=== PATIENT | male | born 1940 | race Caucasian/White ===

== ENCOUNTER → 2016-08-03 18:44 | Outpatient (CLI) | payer MEDICARE ==
[2016-08-03 20:19] LABS: BASOPHILS 0.2 % (0-2); EOSINOPHILS 0.8 % (0-7); HEMATOCRIT 33.7 % (42.0-54.0); HEMOGLOBIN 10.9 g/dL (13.5-17.5); IMMATURE GRANULOCYTES 0.2 % (0-5); LYMPHOCYTES 23.3 % (15-50); MCH 27.3 pg (26.0-34.0); MCHC 32.3 g/dL (31.0-37.0); MCV 84.3 fL (80.0-100.0); MEAN PLATELET VOLUME 10.1 fL (7.4-10.4); MONOCYTES 13.7 % (2-11); NEUTROPHILS 61.8 % (40-80); PLATELET COUNT 222 10x3/uL (130-400); RDW 17.7 % (11.5-14.5); WBC 8.5 10x3/uL (4.8-10.8)
[2016-08-03 20:51] LABS: ANION GAP 11.4 mmol/L (8-16); C-REACTIVE PROTEIN 2.5 mg/dL (0.0-0.9); CALCIUM 9.8 mg/dL (8.5-10.1); CREATININE - SERUM 2.5 mg/dL (0.6-1.3); POTASSIUM - SERUM 4.4 mmol/L (3.5-5.1)
[2016-08-03 21:06] LABS: ERYTHROCYTE SEDIMENTATION RATE 14 mm/hr (0-20)
== END | disposition home or self-care (01) ==
LOC: D.LABREF 18:44
PROVIDERS: Student in an Organized Health Care Education/Training Program
DX: E11.621 Type 2 diabetes mellitus with foot ulcer (principal)

== ENCOUNTER 2016-08-23 04:48 | Inpatient (IN) | payer MEDICARE ==
[2016-08-23] VITALS (60 sets, daily range): BP systolic 74–134; BP diastolic 31–92; Ht 172.7 cm; Wt 72.7 kg
[~2016-08-23] VITALS: Ht 172.7 cm; Wt 72.7 kg
--- NOTE | ~2016-08-23 | DS ---
PATIENT:JOSEP ALICEA :36 MEDICAL RECORD: [id number] DISCHARGE SUMMARY ADMISSION DATE: 08/23/16 DISCHARGE DATE: 08/27/16 Summary DATE OF ADMISSION: 08/23/2016 DATE OF : 08/27/2016 PROBLEM LIST: Cardiogenic shock. SECONDARY DIAGNOSES: 1. Acute myocardial infarction. 2. 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 BRIEF HISTORY AND HOSPITAL COURSE: Elderly gentleman transferred from [place] with cardiogenic shock, underwent urgent revascularization, placement of balloon pump temporary pacer. Despite maximal efforts, he passed on 08/27/2016. CAUSE OF : Cardiogenic shock. TRANSINT:[id number] Voice Confirmation ID: [id number] DOCUMENT ID: [id number] MATT KNOWLES MD CC: [id number] DICTATION DATE: 09/02/16 1247 INJECTION SPECIALIST: 09/03/16 0657 DIS IN 08/27/16 [place] [id number] [place] [address]
--- NOTE | ~2016-08-23 | HEMODYNAMI ---
PATIENT:JOSEP ALICEA MEDICAL RECORD: [id number] : 36 LOCATION:[place] [address] ADMISSION DATE: 08/23/16 Generatedon:08/23/20169:04 Patient name: JOSEP ALICEA Patient #: [id number] SSN: : Date of study: 08/23/2016 Page: Of Hemodynamic Procedure Report Patient Data Patient Demographics First Name: JOSEP Gender: Male Last Name: NIXON : 1940 Patient #: [id number] Age: 75 year(s) Race: Unknown Additional ID: [id number] Contact details Address: [address] [place] [address] State: [place] City: [facility] Zip code: [address] Past Medical History Allergies Allergen Reaction Date Comments Reported Penicillins 08/23/2016 Admission Admission Data Admission Date: 08/23/2016 Admission Time: 6:56 Room #: [facility] Height (in.): 74 BSA: 1.82 (m2) Height (cm.): 187.96 BMI: 16.98 (kg/m2) Weight (lbs.): 132.28 Weight (kg.): 60 Procedure Procedure Types Cath Procedure Diagnostic Procedure LHC LH w/Coronaries Intra-Aortic Balloon Pump PCI Procedure Coronary Stent Initial Miscellaneous Procedures Moderate Sedation up to 45 minutes Procedure Description Procedure Date Procedure Date: 08/23/2016 Procedure Start Time: 8:13 Procedure End Time: 9:03 Procedure Staff Name Function Stephanie Bolanos RT Monitor Gail Faust RN Nurse Rosalio Camara MD Performing Physician Sonia Prajapati RT Scrub Moira Munoz RT Monitor Procedure Data Cath Procedure Fluoroscopy Diagnostic fluoroscopy Total fluoroscopy Time: 7.6 time: 7.6 min min Diagnostic fluoroscopy Total fluoroscopy dose: 757 dose: 757 mGy mGy Contrast Material Contrast Material Type Amount (ml) Isovue 300 86 Entry Location Entry Primary Successful Side Size Upsize Upsize Entry Closure Succes sful Closure Location (Fr) 1 (Fr) 2 (Fr) Remarks Device Remarks Femoral Right 6 Fr 7 Fr Sheath Sutered artery Short Short sutured in with in IABP in place place. Femoral Right 6 Fr Sheath Sutured vein Short sutured in with in Temporary place Pacer in place. Estimated blood loss: 10 ml Diagnostic catheters Device Type Used For End Catheter Placement Cordis 5Fr JL 4.0 Left Coronary Catheter (MP) Angiography Cordis 5Fr 3DRC Catheter Right Coronary (MP) Angiography Cordis 5Fr Pigtail LV Angiography Catheter (MP) Procedure Complications Cardiogenic Shock Procedure Medications Medication Administration Route Dosage Oxygen Lidocaine 2% added to field 20 Heparin Flush Bag added to field 2 bags (1000units/500ml NS) 0.9% NaCl I.V. Dopamine I.V. drip 25 mcg/kg/min (400mg/250ml D5W) Levophed (8mg/250ml I.V. drip 12 mcg/min D5W) Vasopressin I.V. drip 0.4 units/min (100units/250 NS) Calcium Chloride I.V. 1 g Heparin Bolus I.V. 5000 units Integrilin (Bolus I.V. 5.6 ml 2mg/ml) Ancef (1Gm/50ml NS) I.V.P.B 1 g Heparin Drip I.V. drip 800 units/hr (02156mdmwo/250 D5W) Integrilin Drip I.V. drip 5 ml/hr (75mg/100ml) Hemodynamics Rest BSA: 1.82 (m2) O2 Consumption: Estimated: 197.96 (ml/min) O2 Consumption indexed : Estimated:108.77 (ml/min/m) Heart Rate: 54 (bpm) Pressure Samples Time Site Value (mmHg) Purpose Heart Use Rate(bpm) 8:18 LV 69/20,28 EDP 55 Snapshots Pre Cath Intra NCS Post Cath Vital Signs Time Heart Resp SPO2 etCO2 [id number] NIBP (mmHg) Rhythm Pain Sedation Rate (ipm) (%) (mmHg) (mmHg) Status Level (bpm) 7:59:15 54 39 87 0 0 Measuring SB 0 (11) 10(A) , No pain 8:00:39 54 40 91 0 0 Time SB 0 (11) 10(A) Exceeded , No pain 8:05:22 60 45 86 0 0 125/90(105) SB 0 (11) 10(A) , No pain 8:09:40 53 34 85 0 0 64/29(55) SB 0 (11) 10(A) , No pain 8:13:34 53 36 93 0 0 68/49(59) SB 0 (11) 10(A) , No pain 8:17:29 56 34 87 0 0 65/50(56) SB 0 (11) 10(A) , No pain 8:21:19 51 32 95 0 0 81/56(72) SB 0 (11) 10(A) , No pain 8:25:18 70 35 100 0 0 71/46(61) SB 0 (11) 10(A) , No pain 8:29:18 53 43 93 0 0 63/33(52) SB 0 (11) 10(A) , No pain 8:33:09 75 43 96 0 0 75/57(68) SB 0 (11) 10(A) , No pain 8:37:09 74 43 100 0 0 79/46(57) SB 0 (11) 10(A) , No pain 8:41:08 88 49 94 0 0 74/45(61) NSR 0 (11) 10(A) , No pain 8:45:08 67 41 97 0 0 80/38(70) NSR 0 (11) 10(A) , No pain 8:50:01 71 43 92 0 0 110/58(87) NSR 0 (11) 10(A) , No pain 8:53:55 75 41 95 0 0 111/77(84) NSR 0 (11) 10(A) , No pain 8:58:04 80 38 99 0 0 106/54(82) NSR 0 (11) 10(A) , No pain 9:02:59 83 36 100 0 0 107/51(91) NSR 0 (11) 10(A) , No pain Medications Time Medication Route Dose Verified Delivered Reason N otes Effectiveness by by 7:59:11 Oxygen bipap bipap per Rosalio Reynolds for low [address] Lisandro Faust RN, MD 8:00:11 Levophed I.V. 12 mcg/min Rosalio Reynolds Per physician f rom icu (8mg/250ml D5W) drip [facility] Lisandro Faust RN, MD 8:00:38 Dopamine I.V. 25 Rosalio Reynolds Per physician f rom icu (400mg/250ml drip mcg/kg/min [facility] Lisandro Faust RN D5W) 8:00:41 Vasopressin I.V. 0.4 Rosalio Reynolds Per physician f rom icu (100units/250 drip units/min [facility] Lisandro Faust RN NS) 8:08:35 Lidocaine 2% added 20ml vial Rosalio Santamaria for local to [facility] anesthetic field MD [place] 8:08:41 Heparin Flush added 2 bags Rosalio Santamaria for local Bag to [facility] anesthetic (1000units/500ml field MD [place] NS) 8:09:11 0.9% NaCl I.V. as ordered Rosalio Reynolds Per physician [facility]. Lisandro Faust RN, MD 8:16:13 Calcium Chloride I.V. 1 g Rosalio Reynolds Per physician [facility]. Lisandro Faust RN, MD 8:24:39 Heparin Bolus I.V. 5000 units Rosalio Reynolds for v erified [facility]. Lisandro Faust RN anticoagulation with MD geovani gore rn 8:26:15 Integrilin I.V. 5.6 ml Rosalio Reynolds for (Bolus 2mg/ml) [facility] Lisandro Faust RN antiplatelet MD therapy 8:50:54 Ancef (1Gm/50ml I.V.P.B 1 g Rosalio Reynolds Per physician peter granados NS) St. Lisandro diaz MD is aware of pcn allergy. 8:57:21 Heparin Drip I.V. 800 Rosalio Buffie for v erified (70745jwhqz/250 drip units/hr [facility]. Lisandro Faust RN anticoagulation with D5W) MD geovani gore rn 8:57:41 Integrilin Drip I.V. 5 ml/hr Rosalio Reynolds for v erified (75mg/100ml) drip [facility]. Lisandro Faust RN antiplatelet with MD therapy geovani gore rn, renal dose Procedure Log Time Note 7:43:10 Gail Faust RN sent for patient. Start room use. 7:43:11 Time tracking: Regular hours 7:43:20 Plan of Care:Hemodynamics will remain stable., Cardiac rhythm will remain stable., Patient/ family verbilizes understanding of procedure., Procedure tolerated without complication., Recovers from procedure without complications.. 7:44:05 Patient received from CVICU to CCL 1 Alert and oriented. Tansferred to table in Supine position. 7:56:58 Warm blankets applied, and margaret hugger turned on for patient comfort. 7:57:02 Correct patient and procedure confirmed by team. 7:57:26 ECG and BP/O2 sat monitors applied to patient. 7:57:27 Vital chart was started 7:57:28 Baseline sample Acquired. 7:58:35 left bundle branch block 7:58:51 Full Disclosure recording started 7:59:01 Pre-procedure instructions explained to patient. 7:59:11 Oxygen bipap per rt bipap was administered by Gail Faust RN; for low 02 sats; 7:59:57 IV patent on arrival in left forearm with 0.9% NaCl at O. 8:00:11 Levophed (8mg/250ml D5W) 12 mcg/min I.V. drip was administered by Gail Faust RN; Per physician; from icu 8:00:37 Right groin area was prepped with chlora-prep and draped in sterile fashion 8:00:38 Dopamine (400mg/250ml D5W) 25 mcg/kg/min I.V. drip was administered by Gail Faust RN; Per physician; from icu 8:00:39 Sharps counted by scrub and verified by R.N. 8:00:39 Alarms reviewed by R. N. 8:00:41 Vasopressin (100units/250 NS) 0.4 units/min I.V. drip was administered by Gail Faust RN; Per physician; from icu 8:02:55 Baseline sample Acquired. 8:03:09 H&P Date Dictated: 08/23/2016 Emergent; H&P N/A. 8:03:51 Patient in Cardiogenic shock. 8:04:05 Pre-op teaching completed and patient verbalized understanding. 8:04:07 Family in waiting room. 8:04:09 Patient NPO since Midnight. 8:04:17 Patient allergic to Penicillins 8:04:24 Is the patient allergic to Iodine/contrast media? No. 8:05:05 Is patient on blood thinner?Unknown 8:05:48 Unable to do pre anesthesia assessment. 8:05:52 Patient diabetic? Unknown. 8:06:05 Pre procedure: right dorsailis pedis pulse 1+ Palpable, but thready & weak; easily obliterated 8:06:07 Patient pain scale 0/10 ?. 8:06:14 Zero performed for pressure channel P1 8:06:41 Zero performed for pressure channel P1 8:06:43 Zero performed for pressure channel P1 8:06:49 Zero performed for pressure channel P1 8:06:52 Zero performed for pressure channel P1 8:08:15 Lab results completed and on chart. 8:08:35 Lidocaine 2% 20ml vial added to field was administered by Rosalio Camara MD; for local anesthetic; 8:08:41 Heparin Flush Bag (1000units/500ml NS) 2 bags added to field was administered by Rosalio Camara MD; for local anesthetic; 8:09:11 0.9% NaCl as ordered I.V. was administered by Gail Faust RN; Per physician; 8:10:14 Physician paged 8:11:25 Patient Height : 74 cm 8:11:30 Patient Weight : 132.28 kg 8:12:13 Final Timeout: patient, procedure, and site verified with staff and physician. All members of the team are in agreement. 8:12:14 Right groin site verified by team. 8:12:23 Physical assessment completed. ASA score P 4 - A patient with severe systemic disease that is a constant threat to life as per Rosalio Camara MD. 8:12:25 Sedation plan: IV Moderate Sedation Versed, Fentanyl 8:12:38 Use device set Femoral Dx 8:12:39 Bag Decanter opened to sterile field. 8:12:39 Acist Syringe opened to sterile field. 8:12:40 St Guy 260cm J .035 wire opened to sterile field. 8:12:40 Medline Cath Pack opened to sterile field. 8:12:41 Acist Hand Control opened to sterile field. 8:12:42 Diagnostic Infinity 5Fr Multipack catheter opened to sterile field. 8:12:42 Acist Manifold opened to sterile field. 8:12:43 Tegaderm 4 x 4 opened to sterile field. 8:12:49 Terumo 6Fr [place] Sheath opened to sterile field. 8:13:49 Procedure started. 8:13:52 Local anesthetic to right femoral artery with Lidocaine 2% by Rosalio Camara MD.INITIAL ACCESS ONLY 8:14:09 A 6 Fr Short sheath was inserted into the Right Femoral artery 8:15:04 A Cordis 5Fr JL 4.0 Catheter (MP) was advanced over the wire and used for Left Coronary Angiography. 8:16:13 Calcium Chloride 1 g I.V. was administered by Gail Faust RN; Per physician; 8:16:38 Catheter removed. 8:16:46 A Cordis 5Fr 3DRC Catheter (MP) was advanced over the wire and used for Right Coronary Angiography. 8:17:17 Terumo 6Fr [place] Sheath opened to sterile field. 8:17:52 Catheter removed. 8:17:58 A Cordis 5Fr Pigtail Catheter (MP) was advanced over the wire and used for LV Angiography. 8:19:28 LV gram done using COLE 8:19:33 Injector settings: Ml/sec: 10, Volume: 20, 8:19:35 Catheter removed. 8:21:07 Local anesthetic to right femoral vein with Lidocaine 2% by Rosalio Camara MD.ADDITIONAL ACCESS 8:21:19 A 6 Fr Short sheath was inserted into the Right Femoral vein 8:21:24 Temporary pacer inserted 8:21:54 Cordis 6FR XBLAD 3.5 guide catheter opened to sterile field. 8:21:55 5Fr J Tip Temporary Pacing Catheter opened to sterile field. 8:22:05 Temporary pacer turned on with the following settings: Rate 80, MA 10, Mode: Demand. 8:22:43 Temporary pacer turned on with the following settings: Rate 70, MA 2, Mode: Demand. 8:23:40 6 Fr XBLAD 3.5 guide catheter was inserted over the wire 8:24:39 Heparin Bolus 5000 units I.V. was administered by Gail Faust RN; for anticoagulation; verified with geovani gore rn 8:24:55 Whisper wire advanced. 8:26:15 Integrilin (Bolus 2mg/ml) 5.6 ml I.V. was administered by Gail Faust RN; for antiplatelet therapy; 8:28:29 Inflation Number: 1 A Medtronic Integrity 3.5 X 15 stent was prepped and advanced across the Prox LAD. The stent was deployed at 14 VELIA for 0:23 (min:sec). 8:29:57 Temporary pacer turn off 8:30:15 Temporary Repositioned. 8:32:18 Temporary pacer turned on with the following settings: Rate 70, MA 2.5, Mode: Demand. 8:32:31 Terumo 7Fr Longmont Sheath opened to sterile field. 8:32:41 Datascope IABP 40cm balloon catheter opened to sterile field. 8:32:52 Stent catheter was removed intact over wire. 8:32:53 Guide catheter removed. 8:32:53 Wire removed. 8:33:35 Sheath upsized to a 7 Fr Short. 8:34:37 TUBING, CONTRAST INJCTN HI PRES opened to sterile field. 8:35:08 SUTURE SILK 2-0 BLK BR FS 18 I opened to sterile field. 8:35:13 SUTURE SILK 2-0 BLK BR FS 18 I opened to sterile field. 8:42:22 40cc IABP inserted into the RFA . 8:42:26 Augmentation: 1:1 per physician. 8:42:27 Trigger: Pressure 8:49:26 Augmenter BP: 102 8:49:38 Procedure ended.(Physican Out) 8:49:49 Fluoroscopy time 07.60 minutes. 8:49:53 Fluoroscopy dose: 757 mGy 8:49:53 Flurop Dose total: 757 8:50:28 Contrast amount:Isovue 300 86ml. 8:50:30 Sharps counted by scrub and verified by R.N. 8:50:32 Insertion/operative site no bleeding no hematoma. 8:50:54 Ancef (1Gm/50ml NS) 1 g I.V.P.B was administered by Gail Faust RN; Per physician; dr diaz is aware of pcn allergy. 8:50:57 Sheath removed intact; hemostasis achieved with Sheath sutured in place to the Right Femoral artery. 8:51:19 Sheath removed intact; hemostasis achieved with Sheath sutured in place to the Right Femoral vein. 8:51:37 Post-op/insertion site Right Femoral artery dressed using a 4 x 4 and Tegaderm. 8:51:40 Post right femoral artery:stable, clean and dry 8:51:46 Post right femoral vein:stable, clean and dry 8:51:51 Post Procedure Pulses reassessed and unchanged 8:52:03 Post-procedure physical assessment completed. ASA score P 4 - A patient with severe systemic disease that is a constant threat to life as per Rosalio Camara MD. 8:52:07 Post procedure rhythm: unchanged. 8:52:09 Estimated blood loss: 10 ml 8:52:11 Patient needs reinforcement of post procedure teaching. 8:52:11 Post procedure instruction explained to patient.Patient verbalizes understanding. 8:52:38 Procedure type changed to Cath procedure, Diagnostic procedure, LHC, LHC w/Coronaries, Intra-Aortic Balloon Pump, PCI procedure, Coronary Stent Initial, Miscellaneous Procedures, Moderate Sedation up to 45 minutes 8:52:42 Procedure Complication : Cardiogenic Shock 8:52:44 See physician's report for complete and final results. 8:55:16 Arterial Line opened to sterile field. 8:56:09 Singh Whisper J 300cm 0.014 guide wire opened to sterile field. 8:57:17 Tegaderm 4 x 4 opened to sterile field. 8:57:18 Tegaderm 4 x 4 opened to sterile field. 8:57:21 Heparin Drip (98446kaqcv/250 D5W) 800 units/hr I.V. drip was administered by Gail Faust RN; for anticoagulation; verified with geovani gore rn 8:57:41 Integrilin Drip (75mg/100ml) 5 ml/hr I.V. drip was administered by Gail Faust RN; for antiplatelet therapy; verified with geovani gore rn, renal dose 8:58:06 Procedure and supply charges have been captured, reviewed, submitted and are correct. 9:02:55 Vital chart was stopped 9:02:58 Report given to CVICU. 9:03:01 Patient transfered to CVICU with Bed. 9:03:03 Procedure ended. 9:03:03 Full Disclosure recording stopped 9:03:12 End room use (Document Last) Intervention Summary Intervention Notes Time ActionType Lesion and Equipment Action# Pressure Duration Attributes Used 8:28:[address] Place stent Prox LAD Medtronic 1 14 00:23 Integrity 3.5 X 15 stent Device Usage Item Name Manufacture Quantity Catalog Number Hospital Part Current Mini mal Lot# / Charge Number Stock Stock Serial# Code Acist Acist 1 85929 093441 301626 935766 20 Syringe Medical Systems Inc Bag Microtek 1 2002S 899730 60039 347889 5 Logicbroker. Medline Cardinal 1 [id number] 522489 83940 963277 5 [employer] [facility] Guy 1 970983 479018 783647 096807 30 260cm J .035 wire Acist Hand Acist 1 02977 783265 912541 831229 5 Control Medical Systems Inc Acist Acist 1 42014 657051 001347 260544 5 [facility] Medical Systems Inc Diagnostic Cardinal 1 [id number] 436379 48697 901774 30 Infinity Health 5Fr Multipack catheter Tegaderm 4 3M 3 1626W 923340 999127 830485 5 x 4 Terumo 6Fr Terumo 2 [id number] 318114 049024 051202 40 [place] Sheath Cordis 5Fr Cardinal 1 244782 5 JL 4.0 Health Catheter (MP) Cordis 5Fr Cardinal 1 355811 5 3DRC Health Catheter (MP) Cordis 5Fr Cardinal 1 792909 5 Pigtail Health Catheter (MP) Cordis 6FR Cardinal 1 [id number] 931655 094501 253178 10 XBLAD 3.5 Health guide catheter 5Fr J Tip Jensen 1 [id number] 107789 61211 411096 2 Temporary Lifesciences Pacing Catheter Medtronic Medtronic 1 [id number] 624327 081459 3 [id number] Integrity 3.5 X 15 stent Terumo 7Fr Terumo 1 [id number] 589750 244436 028610 5 [place] Sheath Datascope Datascope 1 3749-16-3782-01 723391 070672 581995 1 IABP 40cm balloon catheter TUBING, Merit 1 [id number] 725642 653573 322848 5 CONTRAST Medical INJCTN HI PRES SUTURE Ethicon 2 685H 654116 971159 5 SILK 2-0 BLK BR FS 18 I Arterial Jensen 1 [id number] 712899 10821 110495 5 Line Lifesciences Singh Singh 1 [id number] 086199 892022 024290 5 Whisper J Vascular 300cm 0.014 guide wire Signature Audit [place] Stage Time Signature Unsigned Intra-Procedure 08/23/2016 Moira 9:04:20 AM Counts RT(R) Signatures Monitor : Stephanie Bolanos RT Signature : Date : Time : Monitor : Moira Signature : Counts RT Date : Time : [address] [place] [address]
[2016-08-23 07:27] LABS: BASOPHILS 0.1 % (0-2); EOSINOPHILS 0 % (0-7); HEMATOCRIT 35.4 % (42.0-54.0); HEMOGLOBIN 11.2 g/dL (13.5-17.5); IMMATURE GRANULOCYTES 0.7 % (0-5); LYMPHOCYTES 10.1 % (15-50); MCH 27.6 pg (26.0-34.0); MCHC 31.6 g/dL (31.0-37.0); MCV 87.2 fL (80.0-100.0); MEAN PLATELET VOLUME 11.1 fL (7.4-10.4); MONOCYTES 13.3 % (2-11); NEUTROPHILS 75.8 % (40-80); PLATELET COUNT 213 10x3/uL (130-400); RBC 4.06 10x6/uL (4.20-6.10); RDW 19.7 % (11.5-14.5); WBC 18.8 10x3/uL (4.8-10.8)
[2016-08-23 07:34] LABS: ANION GAP 25.7 mmol/L (8-16); CARBON DIOXIDE 15.5 mmol/L (21.0-32.0); CREATININE - SERUM 2.2 mg/dL (0.6-1.3); POTASSIUM - SERUM 4.2 mmol/L (3.5-5.1)
--- NOTE | 2016-08-23 07:40 | NUR ---
OJEDA CATHETER PLACED PER ORDER.
--- NOTE | 2016-08-23 07:50 | NUR ---
PT TO SUPERINTENDENT NONSELLING VIA BED.
--- NOTE | 2016-08-23 09:08 | NUR ---
REPORT RECEIVED FROM GOLDEN VALENTINO RN.
--- NOTE | 2016-08-23 09:15 | NUR ---
PT RETURNED FROM [facility].
--- NOTE | 2016-08-23 09:20 | NUR ---
PT RECEIVED FROM WAREHOUSE ORDER FILLER WITH IAPB AND TPM IN PLACE. IAPB FREQUENCY 1:1, TPM VV1 70.
--- NOTE | 2016-08-23 09:41 | NUR ---
DR PARRY NOTIFIED OF CONSULT, PT PREPPED FOR INTUBATION.
--- NOTE | 2016-08-23 09:43 | NUR ---
FAMILY AT BEDSIDE, UPDATE PROVIDED. BOTH PT AND FAMILY CONSENT TO INTUBATION.
--- NOTE | 2016-08-23 10:00 | NUR ---
DECISION MADE TO HOLD OFF ON INTUBATION AT THIS TIME. PT WILL REMAIN ON BIPAP, PLAN DISCUSSED WITH FAMILY BY DR PARRY AND RT.
--- NOTE | 2016-08-23 10:19 | NUR ---
REPEAT CXR COMPLETE.
--- NOTE | 2016-08-23 11:30 | NUR ---
REASSESSMENT VIA FLOWSHEET, SEE FOR DETAILS.
--- NOTE | 2016-08-23 12:25 | NUR ---
FAMILY AT BEDSIDE, UPDATE PROVIDED.
--- NOTE | 2016-08-23 13:20 | NUR ---
DR PUCKETT HERE TO SEE PATIENT. FAMILY UPDATED BY DR UPCKETT REGARDING PT CONDITION.
--- NOTE | 2016-08-23 15:01 | NUR ---
LAB HERE FOR PTT DRAW.
--- NOTE | 2016-08-23 15:03 | NUR ---
FAMILY AT BEDSIDE, PT CONVERSING WITH VISITORS. VSS. IAPB REMAINS 1:1.
--- NOTE | 2016-08-23 15:30 | NUR ---
REASSESSMENT VIA FLOWSHEET, SEE FOR DETAILS.
--- NOTE | 2016-08-23 15:35 | NUR ---
PTT RESULTS REVIEWED, HEPARIN GTT ADJUSTED PER PROTOCOL.
[2016-08-23] MEDS ORDERED: LANOXIN250 MCG PO (17:38)
[2016-08-23] MEDS ORDERED: LASIX80 MG PO (17:39)
[2016-08-23] MEDS ORDERED: GLUCOPHAGE500 MG PO (17:39)
[2016-08-23] MEDS ORDERED: COUMADIN7.5 MG PO (17:45)
[2016-08-23] MEDS ORDERED: COUMADIN5 MG PO (17:45)
[2016-08-23] MEDS ORDERED: ZESTRIL20 MG PO (17:46)
[2016-08-23] MEDS ORDERED: K-DUR20 MEQ PO (17:47)
[2016-08-23] MEDS ORDERED: ASPIRIN325 MG PO (17:48)
[2016-08-23] MEDS ORDERED: HYDROCODON-ACE1 EAC7 PO (17:49)
[2016-08-23] MEDS ORDERED: VITAMIN B-121000 MCG PO (17:49)
[2016-08-23] MEDS ORDERED: FE C TABLET1 TAB PO (17:50)
[2016-08-23] MEDS ORDERED: MULTIPLE VITAMI1 TA1 PO (17:50)
[2016-08-23] MEDS ORDERED: LEVAQUIN250 MG (17:51)
--- NOTE | 2016-08-23 18:07 | NUR ---
FAMILY AT BEDSIDE, UPDATE PROVIDED. PT AWAKE AND CONVERSING WITH VISITORS.
--- NOTE | 2016-08-23 19:30 | NUR ---
REPORT REC'D AND CARE ASSUMED, REC'D PT AWAKE, ALERT, ORIENTED X 3 ON 100% NRB, CM-CAF, RIGHT HAND PIV WITH D5W WITH 3AMPS BICARB @ 30CC/HR, RIGHT FA PIV WITH DOPAMINE @ 15MCG/KG/MIN OR 33.8CC/HR, RIGHT A/C PIV WITH HEPARIN @ 600UNITS/HR AND INTEGRILIN @ 4.8CC/HR OR 1MCG/KG/MIN, LEFT A/C PIV WITH LEVOPHED @ 22.5CC/HR OR 12MCG/KG/MIN AND VASOPRESSIN @ 6CC/HR OR 0.04 UNITS/MIN, IABP 1:1 TO RIGHT GROIN, TRANSVENOUS P/M TO RIGHT GROIN VVI 70 VMA 2.5, P/M SENSING, GROIN DRSG CDI WITH NO BLEEDING OR HEMATOMA, CRITICORE OJEDA PATENT DRAINING A SMALL AMOUNT CONCENTRATED URINE, PP BY DOPPLER, PT DENIES PAIN OR NEEDS AT THIS TIME, SR UP X 2, 1:[address]
--- NOTE | 2016-08-23 20:00 | NUR ---
PT COMPLAINS OF HEAD BEING COLD, HEAD COVER MADE WITH STOCKINET FOR PT COMFORT.
--- NOTE | 2016-08-23 21:00 | NUR ---
FAMILY @ BS, UPDATE GIVEN AND QUESTIONS ANSWERED, CAP BROUGHT FROM HOME FOR PT, FAMILY PLACED ON PT AFTER REMOVING STOCKINET, PT DENIES NEEDS CONVERSING WITH FAMILY.
--- NOTE | 2016-08-23 22:30 | NUR ---
PT REPOSITIONED FOR COMFORT, LOG ROLLED ONTO LEFT SIDE SUPPORTED WITH PILLOW, FEW SIPS OF ICE WATER PROVIDED, PT DENIES FURTHER NEEDS
--- NOTE | 2016-08-23 23:30 | NUR ---
REASSESSMENT COMPLETED, PT RESTING EYES CLOSED RESP EVEN AND UNLABORED, NONPRODUCTIVE SOUNDING COUGH NOTED FROM TIME TO TIME, ATTEMPTING TO WEAN MEDS TOLERATED.
[2016-08-24] VITALS (96 sets, daily range): BP systolic 98–130; BP diastolic 34–80
--- NOTE | 2016-08-24 01:00 | NUR ---
PT REPOSITIONED ONTO BACK, DENIES PAIN OR NAUSEA, CONTINUING TO WEAN GTT'S TOLERATED
--- NOTE | 2016-08-24 03:00 | NUR ---
PT AWAKE REQUESTING TO GO TO THE BATHROOM, PT LOG ROLLED AND PLACED ON BEDPAN.
--- NOTE | 2016-08-24 03:20 | NUR ---
PT REMOVED FROM BEDPAN, NO RESULTS NOTED, PT'S BACK DIAPHORETIC, COMPLETE BATH AND LINEN CHANGE PROVIDED, PT REPOSITIONED UP IN BED FOR COMFORT, ORAL CARE PROVIDED AND SIPS OF WATER PROVIDED, PT DENIES FURTHER NEEDS, RIGHT GROIN DRSG REMAINS CDI, NO BLEEDING OR HEMATOMA, WILL CONT TO MONITOR CLOSELY FOR CHANGES.
--- NOTE | 2016-08-24 03:30 | NUR ---
RT AT BS FOR VANDA
--- NOTE | 2016-08-24 03:45 | NUR ---
RADIOLOGY AT BS FOR AM CXR.
--- NOTE | 2016-08-24 05:45 | NUR ---
LAB AT FOR TIMED DRAW, UNABLE TO OBTAIN BLOOD AT THIS TIME.
--- NOTE | 2016-08-24 06:00 | NUR ---
FAMILY @ BS, UPDATE GIVEN AND QUESTIONS ANSWERED, PT RESTING EYES CLOSED, BP STABLE.
--- NOTE | 2016-08-24 06:15 | NUR ---
LAB AT BS FOR REDRAW
[2016-08-24 06:49] LABS: INR 1.69 (0.85-1.17); PROTIME 19.9 SECONDS (11.6-15.0)
[2016-08-24 06:50] LABS: APTT 54.3 SECONDS (22.8-39.4)
--- NOTE | 2016-08-24 07:30 | NUR ---
SHIFT ASSESSMENT VIA FLOWSHEET, SEE FOR DETAILS.
[2016-08-24 07:47] LABS: BASOPHILS 0 % (0-2); EOSINOPHILS 0 % (0-7); HEMATOCRIT 31.8 % (42.0-54.0); HEMOGLOBIN 10.6 g/dL (13.5-17.5); IMMATURE GRANULOCYTES 0.2 % (0-5); LYMPHOCYTES 7.9 % (15-50); MCH 27.5 pg (26.0-34.0); MCHC 33.3 g/dL (31.0-37.0); MEAN PLATELET VOLUME 11.4 fL (7.4-10.4); MONOCYTES 8.2 % (2-11); NEUTROPHILS 83.7 % (40-80); RBC 3.85 10x6/uL (4.20-6.10); RDW 19.3 % (11.5-14.5); WBC 17.1 10x3/uL (4.8-10.8)
[2016-08-24 07:48] LABS: MCV 82.6 fL (80.0-100.0); PLATELET COUNT 112 10x3/uL (130-400)
[2016-08-24 08:24] LABS: ALBUMIN 2.3 g/dL (3.4-5.0); ALKALINE PHOSPHATASE 49 U/L (46-116); ALT (SGPT) 128 U/L (10-68); CALCIUM 8.3 mg/dL (8.5-10.1); CHLORIDE - SERUM 97 mmol/L (98-107); MAGNESIUM - SERUM 2.2 mg/dL (1.8-2.4); PHOSPHOROUS 6.1 mg/dL (2.5-4.9); POTASSIUM - SERUM 3.9 mmol/L (3.5-5.1); PROTEIN - SERUM 6.6 g/dL (6.4-8.2); SODIUM 137 mmol/L (136-145)
[2016-08-24 08:28] LABS: CALC OSMOLALITY 297 mosm/kg (275-300); CARBON DIOXIDE 29.9 mmol/L (21.0-32.0); CREATINE KINASE 2001 UL (21-232); CREATININE - SERUM 2.9 mg/dL (0.6-1.3); GLUCOSE 229 mg/dL (74-106); UREA NITROGEN 61 mg/dL (7-18); eGFR NON AFRICAN AMERICAN 22 mL/min (90-120)
[2016-08-24 08:29] LABS: TROPONIN-I 121.293 ng/mL (0.000-0.060)
[2016-08-24 08:30] LABS: CKMB 211.7 U/L (0.0-3.6)
--- NOTE | 2016-08-24 09:12 | NUR ---
AT BEDSIDE, UPDATE PROVIDED. FAMILY UPDATED BY DR KNOWLES AND JAKE JOSEPH APN DURING PATIENT ROUNDS.
--- NOTE | 2016-08-24 09:40 | NUR ---
PT LOGROLLED AND PLACED ON BEDPAN FOR BM.
--- NOTE | 2016-08-24 09:55 | NUR ---
PT LOGROLLED AND BEDPAN REMOVED. NO BM, PT PASSING GAS ONLY. PT REPOSITIONED ONTO LEFT SIDE. LEFT LEG PROPPED ON PILLOW PER PT REQUEST. TOLERATED MOVEMENT WITHOUT ADVERSE CHANGE IN VITALS.
--- NOTE | 2016-08-24 10:12 | NUR ---
SPOKE WITH DR KNOWLES VIA PHONE, NEW ORDERS RECEIVED.
--- NOTE | 2016-08-24 10:36 | NUR ---
PT PLACED ON 6L OXYMIZER BY RT.
--- NOTE | 2016-08-24 11:29 | NUR ---
SPOKE WITH ROSSY GOODWIN OUT FOR THE REST OF THE WEEK. WILL EXPLORE OTHER OPTIONS FOR ACCESS.
--- NOTE | 2016-08-24 11:30 | NUR ---
REASSESSMENT VIA FLOWSHEET, SEE FOR DETAILS.
--- NOTE | 2016-08-24 12:30 | NUR ---
INTEGRILIN GTT D/C'D PER ORDER.
--- NOTE | 2016-08-24 14:15 | NUR ---
SPOKE WITH DR MANCERA VIA PHONE, INFORMED OF CONSULT.
--- NOTE | 2016-08-24 15:15 | NUR ---
RIGHT RADIAL ART LINE PLACED BY DR MANCERA.
--- NOTE | 2016-08-24 18:04 | NUR ---
FAMILY AT BEDSIDE, UPDATE PROVIDED
--- NOTE | 2016-08-24 19:20 | NUR ---
REC'D PT RESTING IN BED EYES CLOSED, OXYMIZER @ 6LITERS, PT AWAKENS TO TOUCH, ORIENTED X 3, RIGHT A/C PIV WITH HEPARIN @ 1000UNITS/HR, RIGHT FOREARM WITH DOPAMINE @ 8MCG/KG/MIN OR 18CC/HR, RIGHT FOREARM PIV WITH D5W WITH 3AMPS BICARB @ 30CC/HR, LEFT A/C PIV WITH LEVOPHED @ 3.25MCG/MIN OR 6.1CC/HR AND VASOPRESSIN @ 0.04UNITS/MIN, BP 114/64, PT DENIES PAIN OR NAUSEA, RIGHT GROIN IABP 1:1 WITH ECG TRIGGER, APPROPRIATE WAVEFORMS NOTED, RIGHT GROIN TRANSVENOUS P/M VVI 70 VMA 2.5, CM-IRREGULAR RHYTHM WITH LEFT BUNDLE BRANCH BLOCK, P/M SENSING, CRITICORE OJEDA PATENT DRAINING CLEAR YELLOW URINE, LEFT LEG ELEVATED PER REQUEST, DRSG TO LEFT FOOT INTACT, CONSULT FOR WOUND CARE NURSE SENT PREVIOUSLY, SR UP X 2, BED IN LOW POSITION, CALL LIGHT IN REACH, VISIBLE TO NURSES STATION
--- NOTE | 2016-08-24 20:30 | NUR ---
PT REPOSITIONED IN BED FOR COMFORT, SIPS OF WATER PROVIDED, DENIES FURTHER NEEDS
--- NOTE | 2016-08-24 21:05 | NUR ---
FAMILY AT BS, UPDATE GIVEN AND QUESTIONS ANSWERED, VSS, WILL CONT TO MONITOR FOR CHANGES.
--- NOTE | 2016-08-24 23:00 | NUR ---
REASSESSMENT COMPLETED, PT AWAKENS TO VERBAL STIMULI, REPOSITIONED ONTO RIGHT SIDE SUPPORTED WITH PILLOWS, LEFT LEG ELEVATED PER REQUEST, PT DENIES PAIN OR OTHER NEEDS, SR UP X 2, CALL LIGHT IN REACH.
[2016-08-25] VITALS (96 sets, daily range): BP systolic 85–182; BP diastolic 27–76
--- NOTE | 2016-08-25 01:00 | NUR ---
NO CHANGES IN STATUS AT THIS TIME
--- NOTE | 2016-08-25 03:30 | NUR ---
REASSESSMENT COMPLETED, PT REPOSITIONED TO LEFT SIDE SUPPORTED WITH PILLOW, PT TOLERATED WELL, CONTINUING TO WEAN LEVOPHED TOLERATED
--- NOTE | 2016-08-25 05:10 | NUR ---
AM LAB DRAWN FROM NURY AND SENT TO LAB, SIPS OF WATER PROVIDED AND LIP MOISTURIZER APPLIED, PT DENIES FURTHER NEEDS.
[2016-08-25 05:26] LABS: BASOPHILS 0 % (0-2); EOSINOPHILS 0 % (0-7); IMMATURE GRANULOCYTES 0.3 % (0-5); LYMPHOCYTES 11.8 % (15-50); MCH 27.1 pg (26.0-34.0); MCHC 33.1 g/dL (31.0-37.0); MEAN PLATELET VOLUME 10.7 fL (7.4-10.4); MONOCYTES 9.2 % (2-11); NEUTROPHILS 78.7 % (40-80); RDW 19.3 % (11.5-14.5)
[2016-08-25 05:48] LABS: PROTIME 16.5 SECONDS (11.6-15.0)
[2016-08-25 05:55] LABS: INR 1.34 (0.85-1.17)
--- NOTE | 2016-08-25 06:00 | NUR ---
FAMILY AT BS, UPDATE GIVEN AND QUESTIONS ANSWERED.
[2016-08-25 06:03] LABS: D-DIMER-QUANTITATIVE 7.19 ug/mLFEU (0.20-0.54)
[2016-08-25 06:14] LABS: HEMATOCRIT 25.1 % (42.0-54.0); HEMOGLOBIN 8.3 g/dL (13.5-17.5); PLATELET COUNT 85 10x3/uL (130-400); RBC 3.06 10x6/uL (4.20-6.10); WBC 11.1 10x3/uL (4.8-10.8)
[2016-08-25 06:16] LABS: ALBUMIN 2.1 g/dL (3.4-5.0); ANION GAP 14.1 mmol/L (8-16); BILIRUBIN - TOTAL 0.46 mg/dL (0.2-1.3); CALCIUM 7.2 mg/dL (8.5-10.1); CARBON DIOXIDE 30.4 mmol/L (21.0-32.0); CREATININE - SERUM 2.5 mg/dL (0.6-1.3); PHOSPHOROUS 4.6 mg/dL (2.5-4.9); POTASSIUM - SERUM 3.5 mmol/L (3.5-5.1); PROTEIN - SERUM 5.4 g/dL (6.4-8.2); VANCOMYCIN - RANDOM 9.4 ug/mL (10.0-20.0)
[2016-08-25 07:18] LABS: PLATELET ESTIMATE DECREASED
--- NOTE | 2016-08-25 07:29 | NUR ---
PTT 63.7, HEPARIN ADJUSTED TO 1100 UNITS/HR PER PROTOCOL, PT RESTING EYES CLOSED VSS.
--- NOTE | 2016-08-25 08:30 | NUR ---
DR KNOWLES IN TO SEE PATIENT. REMOVED TEMPORARY PACEMAKER FROM RIGHT GROIN ENTRY. PLAN IS TO REMOVED BALLOON PUMP TOMORROW. ASKS FOR HEPARIN TO BE STOPPED AT 0700 ON 08/26
--- NOTE | 2016-08-25 08:44 | NUR ---
CLEAR LIQUID BREAKFAST PROVIDED. TOOK A FEW SIPS OF BROTH AND A COUPLE OF BITES OF JELLO. ICE WATER PROVIDED. PT IN GOOD SPIRITS.
--- NOTE | 2016-08-25 09:45 | NUR ---
CALLED WOUND CARE NURSE TO FOLLOW UP ON CONSULT. SHE IS AWARE AND WILL SEE HIM TODAY.
--- NOTE | 2016-08-25 09:48 | NUR ---
NUTRITION MONITORING & EVAL NOW ON CLEAR LIQUID DIET. WILL CONTINUE MONITOR DIET ADVANCEMENT, PO INTAKE. RD FOLLOWING
--- NOTE | 2016-08-25 09:51 | NUR ---
AM MEDICATIONS GIVEN WITH NO COMPLICATIONS.
--- NOTE | 2016-08-25 10:23 | NUR ---
WOUND CARE NURSE IN ROOM TO ADDRESS WOUNDS OF LEFT FOOT.
--- NOTE | 2016-08-25 10:26 | NUR ---
PT PLACED ON NASAL CANULA 4L
--- NOTE | 2016-08-25 10:44 | NUR ---
Wound Care consult: Pt sees Dr. Paul at the [place] wound clinic on Mondays. He has several wounds on his left foot described as follows: 1- Left #2 toe 0.7cm x 0.7cm x 0.2cm open wound, pink wound bed, moderate serous drainage (no odor) 2- Left-between #3&4 toes - approx measurements are 3cm x 3cm x 0.3cm. [place] wound bed and moderate serous drainage with no odor. 3- Left lateral foot - 2cm x 3.5cm x 0.4cm. Scabbed area (pt states he had surgery on it). 4- Bottom of Left great toe: 1cm x 2cm x 1.7cm x 1.5cm @ 3oclock x 2cm @ 6oclock - this tunnel connects to the wound below: 5-left plantar foot: 1.5cm x 1cm x 1cm (2cm tunnel @ 12oclock connecting to wound #4). Cleansed all areas well with safclens and dried. Applied Maxorb AG to all open areas (weaving around toes) and loosely packing in the tunnels and undermining. Then covered with 4x4s and secured with kerlix. Covered with a stockingette for added security. Will recommend daily dressing changes while in hospital. Also when doing dressing changes be sure to remove all packing. Keep foot elevated. Wound care will continue to monitor.
--- NOTE | 2016-08-25 11:30 | NUR ---
PLACED PT ON BEDPAN X 2 ASSIST.SMALL SOFT, FORMED, BROWN STOOL. NO SIGNS OF BLEEDING NOTED. RED SPOT NOTED ON COCCYX AREA. WILL CONTINUE TO REPOSITION PT TO HELP RELIEVE PRESSURE. PT REPORTS NO PAIN AT THIS TIME.
--- NOTE | 2016-08-25 13:14 | NUR ---
HEPARIN RATE CHANGED TO 12 UNITS/HR PER PROTOCOL.
--- NOTE | 2016-08-25 13:41 | NUR ---
DR. PARRY ASSESSED PT. VASOPRESIN DROPED FROM 0.04 UNITS TO 0.02 UNITS/MIN. DOPAMINE DROPPED FROM 6 MCG/KG/MIN TO 3 MCG/KG/MIN. ASKED ABOUT CENTRAL LINE. TOLD THAT DR. MART WANTS HEPERIN STOPPED TOMORROW MORNING. DR. PARRY WANTS CENTRAL LINE INSERTED TOMORROW AFTER HEPARIN HAS BEEN DC'D.
--- NOTE | 2016-08-25 14:15 | NUR ---
* Is the patient Alert and Oriented? Yes 0 * How many steps to enter\exit or inside your home? Ramp 0 * PCP Dr. Whiting ([place]) 0 * Pharmacy [facility] in [place] 0 * Preadmission Environment Home with Family 0 * ADLs Partial Dependent 0 * Partial ADLs (Assistance needed) Ambulation Bathing Dressing Medication Management Toileting Transfers 0 * Equipment Bedside Commode Wheelchair 0 * List name and contact numbers for known caregivers / representatives who currently or will assist patient after discharge: Spouse - Lisa 0 * Can the patient safely return to the preadmission environment? Yes 08/25/2016 14:15 DCP: Discharge Planning Patient Name: JOSEP ALICEA Admission Status: Elective Accout number: [id number] Admission Date: 08-23-2016 : 1938 Admission Diagnosis:CARDIOGENIC SHOCK Attending: STU Current LOS: 2 Primary Insurance: MEDICARE A & B Discharge Planning Comments: CM met with patient to assess dc plans/needs. Patient is alert & oriented. He states he and his live with their adult son near [place]. Patient reports he requires assistance with ADL's - he denies having home health services. He states he goes to the wound clinic in [place] twice a week for silver dressing changes on his foot. At pa, he hopes to return home with his family. Inpatient or skilled rehab may be an option prior to discharging home. CM will follow. Banking Specialist: Lydia Tesfaye
--- NOTE | 2016-08-25 14:39 | HP ---
PATIENT: JOSEP ALICEA MEDICAL RECORD: [id number] ACCOUNT: [id number] LOCATION:[place] [address] : 38 ADMISSION DATE: 08/23/16 HISTORY AND PHYSICAL EXAMINATION HISTORY OF PRESENT ILLNESS: A 75-year-old gentleman, transferred from [place], with a cardiogenic shock. She was really intended to be transferred to [place]; however, due to bed issue, she was transferred here on an emergent basis. She is currently in cardiogenic shock with diaphoresis, somewhat obtunded, creatinine 2.2, poor peripheral perfusion. Discussed in detail with family, was brought to the wharf laborer on an urgent basis. PAST MEDICAL HISTORY: History of coronary artery disease, hypertension and renal insufficiency. REVIEW OF SYSTEMS: Unobtainable due to the patient's factors. SOCIAL HISTORY: Unobtainable due to the patient's factors. PHYSICAL EXAMINATION: GENERAL: Obtunded, diaphoretic, moderate distress. VITAL SIGNS: Blood pressure ____, pulse 60 and irregular with frequent PVCs. NECK: No bruits noted. HEART: Irregular, II/ systolic ejection murmur. LUNGS: Bibasilar rales. ABDOMEN: Soft, nontender. EXTREMITIES: Pulses are not palpable. IMPRESSION: Cardiogenic shock, to the wharf laborer on an urgent basis. Significant risk for morbidity and mortality discussed with family. TRANSINT:[id number] Voice Confirmation ID: [id number] DOCUMENT ID: [id number] MATT KNOWLES MD at 1439 CC: [id number] DICTATION DATE: 08/23/16 0857 CERTIFIED EMERGENCY VEHICLE TECHNICIAN: 08/23/16 1021 ADM IN [place] [id number] [place] [id number]
--- NOTE | 2016-08-25 15:35 | NUR ---
DR PUCKETT HAS BEEN IN TO SEE PATIENT. REVIEWED IV MEDICATIONS AND BALLOON PUMP. WANTS ANOTHER DOSE OF VANC GIVEN. HE DISCUSSED WITH FAMILY (DAUGHTER, AND OTHERS PRESENT) PT PROGRESS.
--- NOTE | 2016-08-25 19:25 | NUR ---
REPORT RECIEVED. ASSESSMENT COMPLETE PER FLOW SHEET. VSS. PT AWAKE ALERT OREINTED X3. O2 VIA NC 5L O2 SAT 94% RR 18 NON LABORED RUL RML KENDALL CLEAR BILAT LOWER LOBES DEMINISHED. HEART S1S2 86 A FIB CONTROLLED. R RADIDAL A LINE PATENT WITH GOOD WAVEFORM EXTREMETY COOL TO TOUCH PINK WRIST PROTECTOR ON WITH GOOD WAVEFORM ZEROED, BP 129/41. NIBP PATENT TO R GROIN DRSG CDI. 1:2 RATIO NIBP PRESSURE 80/47. BILAT PEDAL PULSES AUDIBLE VIA DOPPLER, BILAT RADIAL PULSES PALP. OJEDA PATENT EDDIE URINE NOTED. VSS WILL CONTINUE TO MONITOR.
--- NOTE | 2016-08-25 20:40 | NUR ---
NIBP L ARM BP CUFF VS ART. LINE DOES NOT CORRELATE. NIBP BP READ 85/53 L ARM BP CUFF READ 86/57. R RADIAL ART LINE READ 131/46. WILL USE NIBP AND BP CUFF FOR FURTHER BP READINGS AND TITRATIONS.
--- NOTE | 2016-08-25 20:52 | NUR ---
HEP INCREASED TO 1300U/HR PER HEP PROTOCOL. NO FURTHER NEW CHAGNES AT THIS TIME.
--- NOTE | 2016-08-25 21:00 | NUR ---
FAMILY AT BEDSIDE. GIVEN UDPATE. NO NEW CHANGES.
--- NOTE | 2016-08-25 23:45 | NUR ---
REASSESSMENT COMPLET EPER FLOW SHEET. VSS. NO NEW CHANGES AT THIS TIME. WILL CONTINUE TO MONTIOR.
[2016-08-26] VITALS (87 sets, daily range): BP systolic 72–142; BP diastolic 32–86
--- NOTE | 2016-08-26 00:50 | NUR ---
ASSISTED ONTO BEDPAN SMALL LOOSE BM NOTED. DENIES FURTHER NEEDS. VSS. NO NEW CHANGES.
--- NOTE | 2016-08-26 02:20 | NUR ---
REPOSITIONED ON R SIDE. VSS GIVEN ICE WATER PER REQUEST. DENIES FURTHER NEEDS. WILL CONTINUE TO MONITOR.
--- NOTE | 2016-08-26 03:28 | NUR ---
REASSESSMENT COMPLETE PER FLOW SHEET. VSS. NO NEW CHANGES. WILL CONTINUE TO MONITOR.
[2016-08-26 06:36] LABS: BASOPHILS 0.1 % (0-2); EOSINOPHILS 0 % (0-7); HEMATOCRIT 24.9 % (42.0-54.0); IMMATURE GRANULOCYTES 0.5 % (0-5); LYMPHOCYTES 12.4 % (15-50); MCH 26.4 pg (26.0-34.0); MCHC 32.1 g/dL (31.0-37.0); MCV 82.2 fL (80.0-100.0); MEAN PLATELET VOLUME 12.4 fL (7.4-10.4); MONOCYTES 9.3 % (2-11); NEUTROPHILS 77.7 % (40-80); RBC 3.03 10x6/uL (4.20-6.10); RDW 19.4 % (11.5-14.5); WBC 12.4 10x3/uL (4.8-10.8)
[2016-08-26 06:37] LABS: PLATELET COUNT 113 10x3/uL (130-400)
--- NOTE | 2016-08-26 06:50 | NUR ---
HEPARIN DRIP STOPPED.
--- NOTE | 2016-08-26 07:00 | NUR ---
PT AWAKE AND ALERT. IN GOOD SPIRITS. 02 AT 4L VIA NC. R-HAND PERIPHERAL IV PATENT AND NONTENDER WITH NS RUNNING AT 15ML/HR. L-AC PERIPHERAL IV PATENT AND NONTENDER WITH VASOPRESSIN RUNNING AT 0.02 UNITS/MIN. LEVOPHED RUNNING AT 1.5 MCG/MIN. R-FOREARM IV PATENT AND NONTENDER WITH DOPAMINE RUNNING AT 5 MCG/KG/MIN. R-AC SALINE LOCK, DRESSING INTACT, CLEAN AND DRY NO TENDERNESS REPORTED. IABP INSERTION SITE RIGHT GROIN. DRESSING INTACT, NO REDNESS OR TENDERNESS NOTED. BED LOW, CALL LIGHT IN REACH.
[2016-08-26 07:12] LABS: ALBUMIN 2.1 g/dL (3.4-5.0); ANION GAP 13.6 mmol/L (8-16); BILIRUBIN - TOTAL 0.8 mg/dL (0.2-1.3); CALCIUM 7.4 mg/dL (8.5-10.1); CARBON DIOXIDE 28.7 mmol/L (21.0-32.0); CREATININE - SERUM 2.2 mg/dL (0.6-1.3); MAGNESIUM - SERUM 2.2 mg/dL (1.8-2.4); PHOSPHOROUS 4.6 mg/dL (2.5-4.9); POTASSIUM - SERUM 3.3 mmol/L (3.5-5.1); VANCOMYCIN - RANDOM 11.5 ug/mL (10.0-20.0)
--- NOTE | 2016-08-26 08:11 | NUR ---
DR. CHILDS TALKED TO PATIENT. CHANGED IABP SETTING FROM 1:2 TO 1:3. PLANS TO HAVE IABP REMOVED AT NOON TODAY.
--- NOTE | 2016-08-26 08:15 | NUR ---
DR KNOWLES HAS BEEN BY TO SEE PATIENT. PLAN TO REMOVED BALLOON PUMP AROUND NOON TODAY. SPOKE TO HIM ABOUT PT GETTING A CENTRAL LINE. SAYS NOW THAT OFF HEPARIN THERE IS NO MORE PTT TESTING AND PT DOES NOT NEED TO HAE A CENTRAL LINE. IS OK WITH JUST CONTINUING WITH PERIPHERAL LINES AT THIS TIME. SPOKE TO HIM ABOUT ORDERING AN AIR OVERLAY. SAYS IS OKAY WITH IT.
--- NOTE | 2016-08-26 08:40 | NUR ---
ADMINISTER MEDICATION WITH NO COMPLICATIONS. PT DOES NOT WANT TO EAT HIS BREAKFAST.
--- NOTE | 2016-08-26 09:07 | NUR ---
FAMILY AT BEDSIDE FOR VISITATION. PT DENIES NEEDS AT THIS TIME.
--- NOTE | 2016-08-26 09:48 | NUR ---
PT SON AT BEDSIDE. REQUESTED NURSING STAFF INTO ROOM. INSTRUCTED ME TO PULL BACK SHEET AND LOOK AT LEFT FOOT. HE IS CONCERNED ABOUT PATIENT TOES 3&4 BEING PURPLE IN COLOR. LET HIM KNOW THAT WOUND NURSE HAD COME YESTERDAY AND HAS LOOKED AT THE FOOT AND CLEANED THE WOUNDS AND DRESSED THEM. PT STILL HAS FEELING IN ALL TOES AND ALTHOUGH TOES ARE PURPLE, THERE IS COLOR CHANGE TO TISSUE WHEN PRESSURE APPLIED. LET THEM KNOW THAT WHILE HE IS IN THE HOSPITAL HIS DRESSINGS WILL BE CHANGED EVERY DAY INSTEAD OF THE M,W,F SCHEDULE HE HAD BEEN ON. IN ADDITION TO THE SON BEING AT BEDSIDE AT THIS TIME, PT AND DAUGHTER WHERE ALSO PRESENT.
--- NOTE | 2016-08-26 10:45 | NUR ---
PT SLEEPING AT THIS TIME. NO DISTRESS NOTED.
--- NOTE | 2016-08-26 11:55 | NUR ---
DR. CHILDS PULLED IABP. FEMSTOP IN PLACE TO KEEP PRESSURE ON SITE. R PEDAL PULSE ASSESSED WITH DOPPLER. REMAIN SUPINE FOR 4 HRS.
[2016-08-26 12:45] LABS: BASOPHILS 0 % (0-2); EOSINOPHILS 0.1 % (0-7); HEMATOCRIT 24.9 % (42.0-54.0); HEMOGLOBIN 8.2 g/dL (13.5-17.5); IMMATURE GRANULOCYTES 0.6 % (0-5); LYMPHOCYTES 12.1 % (15-50); MCH 27.3 pg (26.0-34.0); MCHC 32.9 g/dL (31.0-37.0); MEAN PLATELET VOLUME 11.3 fL (7.4-10.4); MONOCYTES 9.7 % (2-11); NEUTROPHILS 77.5 % (40-80); PLATELET COUNT 114 10x3/uL (130-400); RDW 19.5 % (11.5-14.5); WBC 12.6 10x3/uL (4.8-10.8)
--- NOTE | 2016-08-26 13:56 | NUR ---
0.1MG BUPRENEX ADMINISTERED FOR PAIN 10/10 ON RIGHT GROIN. SON IN ROOM WITH PATIENT.
--- NOTE | 2016-08-26 16:09 | NUR ---
PAGED DR HOPE ABOUT CVL. HE WAS IN PROCEDURE, CALL WAS RETURNED BY SURGERY STAFF MEMBER KERA. SHE WILL LET HIM KNOW THAT WE DO NEED THE CVL. DR PUCKETT HAS BEEN IN TO SEE PATIENT. ASKED TO LOOK AT WOUNDS TO LEFT FOOT. HE SPOKE TO FAMILY AND LET THEM KNOW THAT HE WANTED TO CONSULT SURGERY TO SEE WHAT OPTIONS THERE ARE TO FOOT. FOOT IS MORE PURPLE AND DISCOLORED COMPARED TO YESTERDAY AND THIS MORNING.
--- NOTE | 2016-08-26 17:15 | NUR ---
TRIPPLE LUMEN CENTRAL LINE PLACED ON LEFT SUBCLAVIAN AT BEDSIDE BY DR. HOPE. PT TOLERATED WELL. OVERLAY MATTRESS PLACED ON BED. X 2 ASSIST. PT CLEANED AND COMPLETE LINEN CHANGE PROVIDED. BROWN, FORM BM NOTED. CLEAN GOWN PROVIDED.
--- NOTE | 2016-08-26 17:41 | NUR ---
WOUND ON LEFT FOOT CLEANED AND DRESSING CHANGE. FOOT MORE PURPPLE THAN YESTERDAY. COOL TO THE TOUCH. LEFT PEDAL PULSE AUDIBLE WITH DOPPLER. MAXORB DRESSING APPLIED BETWEEN TOES AND INSIDE WOUND FROM THE CREASE OF THE GREAT TOE TO THE PAD OF THE FOOT. KERLEX BANDAGE APPLIED ON FOOT SECURED WITH TAPE. PT TOLERATED PROCEDURE WELL. NO PAIN REPORTED AT THIS TIME.
--- NOTE | 2016-08-26 18:13 | NUR ---
ULTRASOUND IN PROGRESS OF LEFT LOWER EXTREMITY
--- NOTE | 2016-08-26 18:37 | NUR ---
CALLED MEDICAL IMAGING TO FIND OUT STATUS OF XRAY FOR CENTRAL LINE. SPOKE WITH SYLVESTER AND SHE CALL RADIOLOGIST SINCE SHE DIDN'T HAVE RESULTS YET EITHER. SHE WAS TOLD IT WAS OK TO USE.
--- NOTE | 2016-08-26 19:00 | NUR ---
ALL NEW IV MEDICATIONS PULLED AND NEW LINES IN USE TO LEFT SUBCLAVIAN. MANIFOLD IN USE FOR MEDICATIONS. COMPATIBILITY CHECKED FOR ALL MEDICATIONS, ALL COMPATIBLE. CVP SET UP AND WORKING PROPERLY. ALL PERIPHERAL IV'S REMOVED, TIPS INTACT, NO BLEEDING. ART AND CVP ZEROED. ALL LINES DATED AND TIMED. EACH LINE LABLED FOR MEDICATION AT DISTAL PORTS.
--- NOTE | 2016-08-26 23:30 | NUR ---
1929-REPORT RECVD, CARE ASSUMED. INITIAL ASSMNT COMPLETED. SEE FLOWSHEET FOR ALL FINDINGS. AWAKE AND AOX4. RESP EVEN, SHALLOW. SPO2 96% ON O2 AT 6 LPM NC. CAFIB ON THE MONITOR. PEDAL PULSES PER DOPPLER. SLUGGISH CAP REFILL. RIGHT RADIAL A-LINE INTACT. WAVE FORM FAIR. VASOPRESSIN, DOPAMINE, AND LEVOPHED GTTS IN USE TO MAINTAIN MAP GREATER THAN 60. ABD SOFT. BSA X4, TAKING PO FLUIDS. RIGHT GROIN POST IABP SITE SOFT. CDI. LEFT FOOT WITH DRESSING CDI. F/C PATENT WITH EDDIE UOP TO CRITICORE. AIR OVERLAY IN USE FOR SKIN INTEGRITY AND COMFORT. HOB UP. C/L IN REACH. CONT CURRENT POC. 2129- FAMILY AT BEDSIDE. UPDATE GIVEN. PT JOVIAL AND CONVERSING. VSS. 2329- REASSESSMENT COMPLETED. SEE FLOWSHEET FOR ALL FINDINGS. RESTING AND AOX4. RESP EVEN, SHALLOW. SPO2 96% ON O2 AT 6 LPM NC. CAFIB ON THE MONITOR. PEDAL PULSES PER DOPPLER. SLUGGISH CAP REFILL. RIGHT RADIAL A-LINE INTACT. WAVE FORM FAIR. VASOPRESSIN, DOPAMINE, AND LEVOPHED GTTS IN USE TO MAINTAIN MAP GREATER THAN 60. ABD SOFT. BSA X4, TAKING PO FLUIDS. RIGHT GROIN POST IABP SITE SOFT. CDI. LEFT FOOT WITH DRESSING CDI. F/C PATENT WITH EDDIE UOP TO CRITICORE. AIR OVERLAY IN USE FOR SKIN INTEGRITY AND COMFORT. HOB UP. C/L IN REACH. CONT CURRENT POC.
[2016-08-27] VITALS (19 sets, daily range): BP systolic 41–103; BP diastolic 13–61
--- NOTE | 2016-08-27 01:05 | NUR ---
TURNED AND REPOSITIONED. ICE CHIPS GIVEN. PRESSOR GTTS CONTINUE. CAFIB ON THE MONITOR. MAP GREATER THAN 60. DENIES DISCOMFORT/NEEDS. HOB UP. C/L IN REACH. CONT CURRENT POC.
--- NOTE | 2016-08-27 04:29 | NUR ---
SON'S AT BEDSIDE PER PT REQUEST. FEELING ANXIOUS. SPO2 93%. RESP SHALLOW, TACHY. REMAINS ON PRESSOR SUPPORT TO MAINTAIN B/P. CAFIB ON THE MONITOR. ABGS REQUESTED.
--- NOTE | 2016-08-27 05:10 | NUR ---
ABG DRAWN AND RESULTED. GLUCOSE TREATED IMMEDIATELY. LABS DRAWN. CALLED FOR STAT CHEMISTRY RESULTS TO REPORT TO
[2016-08-27 05:12] LABS: BASOPHILS 0.2 % (0-2); EOSINOPHILS 0 % (0-7); HEMATOCRIT 27.6 % (42.0-54.0); HEMOGLOBIN 8.5 g/dL (13.5-17.5); IMMATURE GRANULOCYTES 2.7 % (0-5); LYMPHOCYTES 4.2 % (15-50); MCH 27.1 pg (26.0-34.0); MCHC 30.8 g/dL (31.0-37.0); MEAN PLATELET VOLUME 11.9 fL (7.4-10.4); MONOCYTES 9.3 % (2-11); NEUTROPHILS 83.6 % (40-80); RBC 3.14 10x6/uL (4.20-6.10); RDW 20.1 % (11.5-14.5)
[2016-08-27 05:14] LABS: MCV 87.9 fL (80.0-100.0); PLATELET COUNT 141 10x3/uL (130-400); WBC 19.7 10x3/uL (4.8-10.8)
[2016-08-27 05:34] LABS: ALBUMIN 2.2 g/dL (3.4-5.0); ANION GAP 36.1 mmol/L (8-16); BILIRUBIN - TOTAL 2.3 mg/dL (0.2-1.3); CALCIUM 7.8 mg/dL (8.5-10.1); CARBON DIOXIDE 10.3 mmol/L (21.0-32.0); CREATININE - SERUM 2.7 mg/dL (0.6-1.3); MAGNESIUM - SERUM 2.7 mg/dL (1.8-2.4); PROTEIN - SERUM 6.1 g/dL (6.4-8.2)
[2016-08-27 05:36] LABS: PHOSPHOROUS 8.4 mg/dL (2.5-4.9); POTASSIUM - SERUM 4.4 mmol/L (3.5-5.1)
--- NOTE | 2016-08-27 06:20 | NUR ---
REPORTED INTUBATION AND MEDS IN USE TO DR KNOWLES. FAMILY UPDATED.
--- NOTE | 2016-08-27 07:40 | NUR ---
ATROPINE FOR HR IN 30'S. CPR POST ATROPINE FOR 1 ROUND. RETURN OF SB RHYTHM.
--- NOTE | 2016-08-27 07:44 | PRO ---
PATIENT:JOSEP ALICEA MEDICAL RECORD: [id number] : 38 LOCATION:D.CVI D.CV07 ADMISSION DATE: 08/23/16 PROCEDURE PERFORMED BY: JAMAAL ROACH MD DATE OF PROCEDURE: 08/26/2016 SURGEON: Jamaal Roach MD. PREOPERATIVE DIAGNOSES: 1. Cardiogenic shock. 2. Acute coronary syndrome. 3. Critical illness. 4. Peripheral IV access insufficiency. POSTOPERATIVE DIAGNOSES: 1. Cardiogenic shock. 2. Acute coronary syndrome. 3. Critical illness. 4. Peripheral IV access insufficiency. PROCEDURE: Left subclavian central venous catheter placement. OPERATIVE PROCEDURE COURSE: After consent was obtained, the patient was placed in the supine position in the ICU bed, a shoulder roll was placed. The left chest and neck were prepped and draped in typical sterile fashion. Local anesthetic was administered. A timeout was taken to confirm the correct patient and procedure. Left subclavian vein was cannulated on the first pass. A guidewire was placed. The needle was removed. Skin incision was made with 11-blade scalpel. The dilator was passed over the wire in a standard Seldinger fashion. The catheter was then passed over the wire in standard Seldinger fashion. It was secured to the skin with a Biopatch and 2-0 silk suture. All 3 ports were aspirated and flushed. At the end of the procedure, all needle and instrument counts were correct. No complications occurred. Immediate postoperative chest x-ray was performed to confirm line placement. TRANSINT:[id number] Voice Confirmation ID: [id number] DOCUMENT ID: [id number] JAMAAL ROACH MD at 0744 CC: [id number] DICTATION DATE: 08/26/16 1702 INDUSTRIAL INSULATOR: 08/27/16 0123 ADM IN [facility] [address] [place] [address]
--- NOTE | 2016-08-27 07:44 | CN ---
PATIENT NAME:JOSEP ALICEA MEDICAL RECORD: [id number] : 36 LOCATION:[place]VI[place].CV07 ADMIT DATE: 08/23/16 ACCOUNT: [id number] CONSULTING PHYSICIAN: JAMAAL ROACH MD REFERRING PHYSICIAN: MATT KNOWLES MD DATE OF CONSULTATION: 08/26/2016 Surgical Consultation SURGEON: Jamaal Roach MD CHIEF COMPLAINT: 1. Peripheral IV access insufficiency 2. Ischemic left foot. HISTORY OF PRESENT ILLNESS: This 75-year-old man who was admitted to the hospital for a cardiac event requiring emergent cardiac catheterization with stent placement as well as hypoxic respiratory failure. He was admitted to the ICU. He has a known ejection fraction of approximately 10%. After his catheterization and stent placement, he was started on vasopressors and intraaortic balloon pump and transferred to the ICU. He has been on multiple pressors for the last several days. His intraaortic balloon pump was removed this morning. His heparin drip was stopped. The patient had profound hypotension during his hospitalization as well as metabolic acidosis, atrial fibrillation. All history is obtained through chart review. PAST MEDICAL HISTORY: Coronary artery disease, atrial fibrillation, hypertension, congestive heart failure, diabetes. ALLERGIES: PENICILLIN. PAST SURGICAL HISTORY: Cardiac catheterization with stent placement. HOME MEDICATIONS: Please see electronic medical record for a full list of home medications. SOCIAL HISTORY: Unknown at this time. FAMILY HISTORY: Unknown at this time. REVIEW OF SYSTEMS: A 12-point review of systems was obtained, pertinent positives and negatives as per the HPI. PHYSICAL EXAMINATION: VITAL SIGNS: Temperature 100, pulse 91, respirations 15, blood pressure 90/55, satting 94%. GENERAL: This is a cachectic elderly male in moderate distress. PSYCHIATRIC: He is awake and alert. EYES: Extraocular muscles intact. EAR, NOSE, AND THROAT: Poor dentition. CARDIOVASCULAR: Irregularly irregular. LUNGS: Decreased breath sounds bilaterally. ABDOMEN: Soft, nontender and nondistended. SKIN: Warm and dry with normal turgor. EXTREMITIES: He has trash foot on the left. He has got chronic ischemic ulcers CONSULT REPORT [id number] JOSEP ALICEA of the 2nd to 4th digit as well as some ulcers on the dorsal surface of the foot. It appears to be neurovascularly intact. He has no palpable dorsalis pedis or posterior tibialis. LABORATORY DATA: Please see electronic medical record for full list of her lab values. His labs were reviewed including CBC, ABG, coags, chemistry and chest x-ray was personally reviewed, which shows CHF. IMPRESSION: This is a 75-year-old male with peripheral IV access insufficiency, critical illness, acute coronary syndrome and cardiogenic shock. PLAN: 1. We will place central line for serial blood draws, IV drug therapy and critical illness. Chest x-ray to confirm placement. 2. We will start therapeutic Lovenox for left lower extremity, arterial ultrasound to the left lower extremity and continue antiplatelet therapy. TRANSINT:[id number] Voice Confirmation ID: [id number] DOCUMENT ID: [id number] JAMAAL ROACH MD at 0744 CC: [id number] DICTATION DATE: 08/26/161701 CUSTOMS BROKER: 08/27/16 0115 ADM IN [facility] [address] [place] [address]
--- NOTE | 2016-08-27 08:35 | NUR ---
ALL MEDICATIONS DC'D PER DR. CHILDS. FAMILY AT BEDSIDE. WILL KEEP PT INTUBATED AT THIS TIME NO FURTHER INTERVENTIONS.
--- NOTE | 2016-08-27 11:05 | NUR ---
MASON NOTIFIED. R/O AGE REF # [id number].
--- NOTE | 2016-08-27 11:10 | NUR ---
MESSAGE LEFT FOR HOME. AWAITING RETURN CALL.
--- NOTE | 2016-08-27 11:25 | NUR ---
RETURN CALL RECIEVED FROM HOME. WILL BE LATER THIS AFTERNOON BEFORE CORE SUCKER CAN BE ARRANGED. OPERATING ROOM ORDERLY NOTIFIED.
--- NOTE | 2016-08-27 14:47 | NUR ---
[facility] HERE TO RETRIEVE PT. SENT WITH DENTURES IN MOUTH, HAT ON HEAD AND SOCK ON COT.
--- NOTE | 2016-08-29 16:19 | NUR ---
Per CMS protocol, restraint report logged into data base.
[2016-08-31 11:18] LABS: SPE - A/G RATIO 0.8 (0.7-1.7); SPE - ALBUMIN 2.4 g/dL (2.9-4.4); SPE - ALPHA-1 GLOBULIN 0.4 g/dL (0.0-0.4); SPE - ALPHA-2 GLOBULIN 0.9 g/dL (0.4-1.0); SPE - BETA GLOBULIN 0.7 g/dL (0.7-1.3); SPE - GAMMA GLOBULIN 0.9 g/dL (0.4-1.8); SPE - M-SPIKE Not Observed g/dL (Not Observed); SPE - TOTAL PROTEIN 5.3 g/dL (6.0-8.5)
[2016-09-01 18:10] LABS: UPE RAND - ALBUMIN 40.3 % (()); UPE RAND - ALPHA 1 GLOBULIN 0.4 % (()); UPE RAND - ALPHA 2 GLOBULIN 0.8 % (()); UPE RAND - BETA GLOBULIN 8.1 % (()); UPE RAND - GAMMA GLOBULIN 50.5 % (())
--- NOTE | 2016-09-02 12:53 | OP ---
PATIENT NAME: JOSEP ALICEA MEDICAL RECORD: [id number] :36 LOCATION:[place] D.CV07 ADMISSION DATE:08/23/16 SURGEON: MATT KNOWLES MD DATE OF OPERATION: 08/23/2016 PROCEDURES: Left heart catheterization, selective coronary angiography, intraaortic balloon pump placement and temporary wire placement. The patient was brought to produce laborer for cardiogenic shock on an urgent basis. FINDINGS: Left arteriography in 30-degree COLE view shows severe global hypokinesis, EF 10% to 15%. CORONARY ANATOMY: LEFT MAIN: Left main tapers to about 90% stenosis. Fills only the LAD. CIRCUMFLEX: The circumflex is totally occluded and fills via [id number] collaterals. LAD: LAD itself shows no significant disease. RIGHT CORONARY: Totally occluded. Fills via [id number] collaterals. IMPRESSION: Cardiogenic shock, we will attempt to revascularize left main. DESCRIPTION OF PROCEDURE: After 5-Kittitian sheath was changed for a 6-Kittitian sheath, XB LAD guide catheter provided good catheter support. A 300 cm [place] XT wire was placed across tightly occluded left main down this portion of vessel followed by a 3.5 x 15 mm Integrity nondrug-eluting stent up to 14 atmospheres. This showed resolution of 90% stenosis and no significant residual. Next, under fluoroscopic guidance, intraaortic balloon pump was placed into the descending aorta to the level of ivone and set up at 1:1 augmentation. Next, the right femoral vein was cannulated via modified Seldinger technique. A sheath was placed and temporary pacemaker placed in the right RV apex without difficulty. After adequate thresholds were obtained, the temporary pacemaker was sewn in place. IMPRESSION: 1. Successful percutaneous transluminal coronary angioplasty stenting in the left main. 2. Successful balloon pump placement. 3. Successful temporary pacer placement. 4. The patient is at risk for significant morbidity and mortality given his age, etc. and cardiogenic shock. Discussed in detail with family. TRANSINT:[id number] Voice Confirmation ID: [id number] DOCUMENT ID: [id number] 09/01/[address] Camara, MATT Calderon MD at 1253 CC: [id number] DICTATION DATE: 08/23/16 0855 PIVOT MAKER: 08/23/16 1650 DIS IN 08/27/16 [facility] [address] [facility] [place] [address]
== END 2016-08-27 14:48 | DRG 189 ==
LOC: D.CVICU 04:48
PROVIDERS: Internal Medicine; Internal Medicine Pulmonary Disease; ADMIT Internal Medicine Interventional Cardiology
PROC: 0T9B70Z Drainage of Bladder with Drainage Device, Via Natural or Artificial Opening (ICD-10-PCS; principal; 2016-08-23 07:43)
PROC: 5A09357 Assistance with Respiratory Ventilation, Less than 24 Consecutive Hours, Continuous Positive Airway Pressure (ICD-10-PCS; 2016-08-23 07:43)
PROC: 03HB33Z Insertion of Infusion Device into Right Radial Artery, Percutaneous Approach (ICD-10-PCS; 2016-08-24)
DX: J96.01 Acute respiratory failure with hypoxia (principal); I50.21 Acute systolic (congestive) heart failure; N17.0 Acute kidney failure with tubular necrosis; E13.10 Other specified diabetes mellitus with ketoacidosis without coma; J18.9 Pneumonia, unspecified organism; R57.0 Cardiogenic shock; I95.9 Hypotension, unspecified; I11.0 Hypertensive heart disease with heart failure; I25.10 Atherosclerotic heart disease of native coronary artery without angina pectoris; I48.91 Unspecified atrial fibrillation; D69.6 Thrombocytopenia, unspecified; E11.621 Type 2 diabetes mellitus with foot ulcer; E11.21 Type 2 diabetes mellitus with diabetic nephropathy; D64.9 Anemia, unspecified